=== PATIENT | male | born 1955 | race African-American/Black ===

== ENCOUNTER 2024-02-15 10:35 | Outpatient (CLI) | payer MEDICARE | END 2024-02-15 10:36 | disposition home or self-care (01) | LOC: CSHMRI 10:35 | PROVIDERS: ATTEND Urology | DX: R97.20 Elevated prostate specific antigen [PSA] (principal); R93.89 Abnormal findings on diagnostic imaging of other specified body structures; N40.2 Nodular prostate without lower urinary tract symptoms | CPT/HCPCS: 36415; 72197; 82565 ==